=== PATIENT | female | born 1945 | race Caucasian/White ===

== ENCOUNTER → 2022-09-11 14:13 | Outpatient (BNVA) | payer MEDICARE, OTHER, SELFPAY | PROVIDERS: Family Provider Nurse Practitioner; PCP Registered Nurse; Referring Provider Registered Nurse; Visit Provider Internal Medicine | DX: E05.90 Thyrotoxicosis, unspecified without thyrotoxic crisis or storm (principal); R00.2 Palpitations | CPT/HCPCS: 36415; 83516; 84439; 84443; 84480; 99204 ==

== ENCOUNTER → 2022-11-11 15:36 | Outpatient (BNVA) | payer MEDICARE, OTHER, SELFPAY | PROVIDERS: Family Provider Nurse Practitioner; PCP Registered Nurse; Visit Provider Internal Medicine | DX: E05.90 Thyrotoxicosis, unspecified without thyrotoxic crisis or storm (principal) | CPT/HCPCS: 80053; 84439; 84443; 84480; 85025 ==

== ENCOUNTER → 2023-01-13 14:36 | Outpatient (BNVA) | payer MEDICARE, OTHER, SELFPAY | PROVIDERS: Family Provider Nurse Practitioner; PCP Registered Nurse; Visit Provider Internal Medicine | DX: E05.90 Thyrotoxicosis, unspecified without thyrotoxic crisis or storm (principal) | CPT/HCPCS: 84439; 84443; 84480 ==

== ENCOUNTER → 2023-01-15 14:44 | Outpatient (BNVA) | payer MEDICARE, OTHER, SELFPAY | PROVIDERS: Family Provider Nurse Practitioner; PCP Registered Nurse; Visit Provider Internal Medicine | DX: E05.90 Thyrotoxicosis, unspecified without thyrotoxic crisis or storm (principal); R00.2 Palpitations | CPT/HCPCS: 99213; 99214 ==

== ENCOUNTER → 2023-03-26 11:33 | Outpatient (BNVA) | payer MEDICARE, OTHER, SELFPAY | PROVIDERS: Family Provider Nurse Practitioner; PCP Registered Nurse; Visit Provider Internal Medicine | DX: E05.90 Thyrotoxicosis, unspecified without thyrotoxic crisis or storm (principal) | CPT/HCPCS: 84439; 84443; 84480 ==

== ENCOUNTER → 2023-03-27 14:06 | Outpatient (BNVA) | payer MEDICARE, OTHER, SELFPAY | PROVIDERS: Family Provider Nurse Practitioner; PCP Registered Nurse; Visit Provider Internal Medicine | DX: E05.90 Thyrotoxicosis, unspecified without thyrotoxic crisis or storm (principal); R00.2 Palpitations; R61 Generalized hyperhidrosis | CPT/HCPCS: 99214 ==

== ENCOUNTER → 2023-05-29 15:22 | Outpatient (BNVA) | payer MEDICARE, OTHER, SELFPAY | PROVIDERS: Family Provider Nurse Practitioner; PCP Registered Nurse; Visit Provider Internal Medicine | DX: E05.90 Thyrotoxicosis, unspecified without thyrotoxic crisis or storm (principal) | CPT/HCPCS: 84439; 84443; 84480 ==

== ENCOUNTER → 2023-06-03 13:03 | Outpatient (BNVA) | payer MEDICARE, OTHER, SELFPAY | PROVIDERS: Family Provider Nurse Practitioner; PCP Registered Nurse; Visit Provider Internal Medicine | DX: E55.9 Vitamin D deficiency, unspecified (principal); R25.2 Cramp and spasm; R61 Generalized hyperhidrosis; R00.2 Palpitations; E05.10 Thyrotoxicosis with toxic single thyroid nodule without thyrotoxic crisis or storm | CPT/HCPCS: 36415; 80053; 82306; 82310; 83735; 83970; 84100; 99214 ==

== ENCOUNTER 2023-06-30 14:04 | Observation (INO) | payer MEDICARE, OTHER, SELFPAY ==
[2023-06-30] VITALS (31 sets, daily range): BP systolic 117–183; BP diastolic 57–128; PULSE 80–102; RESP 15–38; O2SAT 90–100; BMI 27.8
[2023-06-30 13:19] LABS: Glucose Point of Care 103 mg/dL (70-110)
--- NOTE | 2023-06-30 13:38 | PM.HP ---
Providers/Chief Complaint Admitting Physician: Kishore Alonso MD Primary Care Provider: Akiko Jean Chief Complaint: Hypoglycemia History of Present Illness Cate Tariq is a 78 year old female with past medical history of hypothyroidism, remote history of breast cancer postlumpectomy and radiation therapy presents to the ER from endocrine office for recurrent persistent hypoglycemia at home. As per the patient she has been having symptoms of difficulty in breathing, palpitations, extreme weakness on and off for the last 2 to 3 weeks for which she had received jacque pro monitor on which she was found to have hypoglycemia with blood sugars dropping down to mid 30s. As per patient's symptoms started around 3 weeks ago and are associated with shortness of breath on exertion. Denies any chest pains. Symptoms are associated with palpitations. Also gives history of decreased appetite and loss of around 7 pounds of weight. Denies any nausea, vomiting, dysuria, diarrhea, sick contacts, cough, subjective fever fever. Today patient was seen back in endocrine office and recurrent hypoglycemia was noticed hence hospitalist service was requested for admission for further monitoring and management. Review of Systems General: Reports: 10 or more systems reviewed and unremarkable except in HPI and below Const: Denies: fever(s), chills, body aches, change in appetite, change in weight, malaise, night sweats, diaphoresis, change in sleep pattern, daytime sleepiness or snoring Eyes: Denies: change in vision, blurry vision, photophobia, eye discomfort or eye discharge ENMT: Denies: throat pain, enlarged tonsils, hoarseness, mouth pain, oral sores, dry mouth, tinnitus, nasal congestion or post nasal drip Card: Denies: chest pain, palpitations, irregular heart rhythm, edema, swelling of feet/ankles, lightheadedness, syncope, pre-syncope, dyspnea on exertion, orthopnea, leg pain with exertion or acrocyanosis Resp: Denies: dyspnea, productive cough, non-productive cough, wheezing, stridor, pain on inspiration, change in phlegm color, hemoptysis or chest congestion GI: Denies: abdominal pain, nausea, vomiting, hematemesis, coffee ground emesis, dysphagia, heartburn, diarrhea, constipation, bloating, GI cramping, change in bowel habits, pain on defecation, hematochezia or melena : Denies: flank pain, dysuria, urinary frequency, urinary urgency, urinary hesitancy, nocturia or hematuria Musc: Denies: neck pain, back pain, extremity pain, joint pain, joint swelling, joint redness, joint stiffness or limited range of motion Neuro: Denies: headache(s), numbness in extremities, weakness in extremities, sensory changes, lack of coordination, difficulty walking, frequent falls, dizziness, vertigo, confusion, Slurred speech present, difficulty communicating thoughts or seizure-like activity Psych: Denies: anxiety, depression, mood swings, panic attacks, hopelessness or irritability Endo: Denies: polyuria, polydipsia, tired all the time, cold intolerance, excessive sweating, flushing or heat intolerance Néstor/Lymph: Denies: easy bruising or easy bleeding All/Imm: Denies: tongue swelling, facial swelling or acute wheezing Medications/Allergies Home Medications Medication Instructions Recorded Confirmed Last Taken Type acetaminophen 500 mg tablet 500 mg PO Q6H PRN Pain 09/11/22 06/30/23 Unknown History (Tylenol Extra Strength) cetirizine 10 mg tablet (Zyrtec) 10 mg PO DAILY PRN Allergy Symptoms 09/11/22 06/30/23 06/29/23 History fluticasone propionate 50 2 spray intranasal DAILY 09/11/22 06/30/23 06/29/23 History mcg/actuation nasal spray,suspension (Flonase Allergy Relief) methimazole 5 mg tablet 7.5 mg PO DAILY 60 days #90 tabs 03/27/23 06/30/23 06/29/23 Rx ibuprofen 200 mg capsule 200 mg PO Q6H PRN Pain 06/30/23 06/30/23 Unknown History xgrzhdpn-aln-vrtim ac 400 1 tab PO DAILY 06/30/23 06/30/23 06/29/23 History mcg-calcium carb 500 mg-vit K1 20 mcg tablet (Women's 50 Plus Multivitamin) Allergies Allergy/AdvReac Type Severity Reaction Status Date / Time propanolol AdvReac Intermediate nose scabs Uncoded 06/30/23 10:57 PFSH Acute PFSH: Medical History (Updated 06/30/23 @ 14:15 by Kishore Alonso MD) Breast cancer Colitis GERD (gastroesophageal reflux disease) Hiatal hernia Hyperthyroidism Inflammatory arthritis Loose left total knee arthroplasty Surgical History (Updated 06/30/23 @ 13:39 by Kishore Alonso MD) History of knee replacement S/P breast lumpectomy Family History (Updated 06/30/23 @ 13:39 by Kishore Alonso MD) Other Arrhythmia CAD (coronary artery disease) Cancer Social History (Updated 06/30/23 @ 13:41 by Kishore Alonso MD) Smoking and tobacco/nicotine status: never used tobacco/nicotine Alcohol intake: never Caregiver/support person: Yes Lives independently: Yes Household members: spouse Housing: House Vitals/I&O/Wt Last Vital Signs O2 Del Method Room Air 06/30/23 12:56 Weight last 48 hrs Weight 76 kg Physical Exam Narrative: General: No acute distress, AO x3 HEENT: PERRLA, pupils bilaterally equal and reactive Chest: Normal vesicular breath sounds, no added sounds, equal good air entry bilaterally CVS: S1-S2 regular, no murmurs, no tachycardia, no gallops, no rubs Abdomen: Soft, nontender, no organomegaly, bowel sounds present Neuro: No focal deficits, no facial deformity, AO x3, power 5/5 in all limbs A&P Assessment and plan (1) Pre-syncope: (2) Palpitation: (3) Weight loss, non-intentional: (4) Hyperthyroidism: Plan 78-year-old female with past medical history of hypothyroidism on methimazole admitted for recurrent episode of palpitations, presyncope and difficulty in breathing on exertion for last 3 weeks for which she was found to have recurrent episodes of hypoglycemia on home monitoring with blood sugars dropping down to mid 30s. Check CBC, appreciate CMP, check proBNP, free T4, TSH, vitamin B12 folate and TIBC. Presyncope/palpitations: Could be in setting of hypoglycemia. Cannot rule out arrhythmia given history of hypothyroidism. Telemetry monitoring. Check TSH, free T4 given history of hypothyroidism. Check echocardiogram. It seems patient was recently on propranolol which was stopped in December for possible bradycardia. Hypoglycemia: Unknown cause. Reconciliation of medications done. Check free cortisol level in AM. Check CT abdomen pelvis with contrast to rule out pancreatic mass. Appreciate endocrine input. Regular diet. Hypoglycemia protocol. If has persistent hypoglycemia will start on D5W. Patient would possibly need a 72-hour fasting monitoring. Unfortunately the test cannot be done at [facility] for 72-hour monitoring. Explained the same to patient. Also explained that if in case that is needed she will need to be transferred most likely to [place] at [facility] as those tests are also not done in [place]. Weight loss: Anorexia: CT abdomen pelvis, TSH work-up as above. Check chest x-ray. Hypothyroidism: Follows up with endocrine as an outpatient. For now continue with home dose of methimazole. High blood pressure: No history of hypertension: Goal blood pressure less than 140/90 mmHg. We will continue to monitor and add antihypertensive as needed. CODE STATUS: Discussed in detail. Full code. will be the DPOA. Patient would like to think further regarding further goals of care. Informed patient that she can let us know about the decision later for now will continue with full code. Patient is agreeable. Regular diet. Famotidine for PUD prophylaxis Lovenox 30 mg subcu daily for DVT prophylaxis. Attestations Medical Necessity Statement*: Admitted to observation for less than 2 midnights for management of recurrent symptomatic severe hypoglycemia. Diagnoses Pre-syncope R55 Palpitation R00.2 Weight loss, non-intentional R63.4 Hyperthyroidism E05.90
--- NOTE | 2023-06-30 14:10 | XRR_ITS ---
PROCEDURE INFORMATION: Exam: XR Chest Exam date and time: 06/30/2023 2:29 PM Age: 78 years old Clinical indication: Shortness of breath TECHNIQUE: Imaging protocol: Radiologic exam of the chest. Views: 1 view. COMPARISON: No relevant prior studies available. FINDINGS: Lungs: Mild biapical pleuroparenchymal thickening. No consolidation. Pleural spaces: Indistinct left costophrenic sulcus may represent small pleural effusion, atelectasis or scarring. No large pleural effusion or pneumothorax. Heart/Mediastinum: No cardiomegaly. Calcified mediastinal lymph nodes in keeping with sequela of old granulomatous disease. Vasculature: Aortic arch atherosclerotic calcification. Bones/joints: Mild biphasic spinal curvature. Mild left shoulder degenerative changes. Soft tissues: Dystrophic left breast calcification and surgical clips. XR/XR chest 1V portable [id number] IMPRESSION: Left costophrenic sulcus blunting may represent small pleural effusion, atelectasis or scarring.
--- NOTE | 2023-06-30 14:10 | USCV_ITS ---
Cate Tariq Age: 78 Gender: F : 1945 Exam Date: 06/30/2023 16:02 Ordering Phys: Kishore Alonso MD Technologist: Francisco J Alatorre [place] [facility]ication: palpitations, SOB on exertion BP: 140 / 82 HR: 87 Rhythm: Sinus Technical Quality: Adequate MEASUREMENTS (Male / Female) Normal Values 2D ECHO LV Diastolic Diameter PLAX 4.0 cm 4.2 - 5.9 / 3.9 - 5.3 cm LV Systolic Diameter PLAX 2.3 cm IVS Diastolic Thickness 0.9 cm 0.6 - 1.0 / 0.6 - 0.9 cm IVS Systolic Thickness 1.1 cm LVPW Diastolic Thickness 0.7 cm 0.6 - 1.0 / 0.6 - 0.9 cm LVPW Systolic Thickness 1.2 cm LVOT Diameter 1.8 cm LV Ejection Fraction 2D Teich 74.4 % LV Ejection Fraction MOD 2C 77.2 % LV Ejection Fraction 2C AL 80.1 % LA Diameter 3.8 cm LA Width 4.5 cm M-MODE Aortic Annulus Diameter 3.2 cm LA Ao Ratio MM 1.1 MV E Point Septal Separation 1.3 cm DOPPLER AV Peak Velocity 108.0 cm/s LVOT Peak Velocity 92.0 cm/s AV Area Cont Eq vti 2.5 cm squared AV Area Cont Eq pk 2.2 cm squared MV Area PHT 6.3 cm squared Mitral E to A Ratio 0.7 MV E' Velocity 40.5 cm/s Mitral E to MV E' Ratio 11.7 Mitral E to LV E' Lateral Ratio 12.3 Mitral E to LV E' Septal Ratio 11.4 TR Peak Velocity 133.0 cm/s TR Peak Gradient 7.1 mmHg TV Peak E Velocity 54.0 cm/s Right Atrial Pressure 3.0 mmHg Pulmonary Artery Systolic Pressu 10.1 mmHg FINDINGS Left Ventricle Technically limited quality echocardiogram because of poor ultrasonic windows. Left ventricle is normal in size. LV systolic function is normal with EF of 50-55%. No regional wall motion abnormalities are seen. Grade 1 diastolic dysfunction Right Ventricle Normal in size and function Right Atrium Normal in size Left Atrium Normal in size Mitral Valve Structurally normal mitral valve. Trace mitral regurgitation Aortic Valve Structurally normal aortic valve. No significant stenosis or regurgitation. Tricuspid Valve Mild tricuspid regurgitation. Pulmonary artery systolic pressure is normal. Pulmonic Valve Not well visualized Pericardium Normal Aorta Normal in size IVC Appears to be normal CONCLUSIONS Technically limited quality echocardiogram because of poor ultrasonic windows. LV systolic function is normal with EF of 50 to 55%. Grade 1 diastolic dysfunction. Trace mitral regurgitation Mild tricuspid regurgitation No comparison studies are available. Leobardo Saldivar MD (Electronically Signed) Final Date: 01 July 2023 09:02 S
[2023-06-30 15:01] LABS: Basophils # 0.1 10^3/uL (0.0-0.1); Basophils % 0.5 %; Eosinophils % 0.4 %; Lymphocytes % 21.3 %; Mean Corpuscular HGB Conc 33.6 g/dL (30-55); Mean Corpuscular Hemoglobin 31.5 pg (27-33); Mean Corpuscular Volume 93.8 fl (85-98); Mean Platelet Volume 8.2 fL (7.4-10.4); Monocytes # 0.5 10^3/uL (0.2-0.9); Monocytes % 5.8 %; Neutrophils # 6.64 10^3/uL (1.8-7.7); Neutrophils % 71.7 %; Nucleated Red Blood Cells % 0 %; Platelet Count 402 10^3/cmm (157-399); Red Blood Count 3.84 10^6/uL (3.85-5.65); Red Cell Distribution Width 11.9 % (12.1-15.1); White Blood Count 9.28 10^3/uL (3.29-11.43)
[2023-06-30 15:16] LABS: D Dimer 0.96 ug/mLFEU (0-0.59); Estmated Average Glucose 105; Hemoglobin A1C 5.3 % (4.0-6.0)
[2023-06-30] MEDS: amlodipine 10 mg Tablet PO (15:31)
[2023-06-30 15:32] LABS: Free T4 Free Thyroxine 1.63 ng/dL (0.82-1.77); NT Pro B Type Natriuretic Pept 320 pg/mL (0-450); Procalcitonin 0.03 ng/mL (0-0.5)
[2023-06-30 15:35] LABS: Thyroid Stimulating Hormone 0.16 uIU/mL (0.27-4.20)
[2023-06-30] MEDS: enoxaparin 30 mg/0.3 mL Syringe SUBCUT (15:35)
[2023-06-30 16:40] LABS: Glucose Point of Care 111 mg/dL (70-110)
[2023-06-30 16:48] LABS: Adenovirus Not Detected (NOT DETECT); Chlamydia Pneumoniae Not Detected (NOT DETECT); Coronavirus 229E,HKU1,NL63,OC4 Not Detected (NOT DETECT); Human Metapneumovirus Not Detected (NOT DETECT); Human Rhinovirus/Enterovirus Not Detected (NOT DETECT); Influenza A Not Detected (NOT DETECT); Influenza A H1 Not Detected (NOT DETECT); Influenza A H1-2009 Not Detected (NOT DETECT); Influenza A H3 Not Detected (NOT DETECT); Influenza B Not Detected (NOT DETECT); Mycoplasma Pneumoniae Not Detected (NOT DETECT); Parainfluenza Virus Type 1 Not Detected (NOT DETECT); Parainfluenza Virus Type 2 Not Detected (NOT DETECT); Parainfluenza Virus Type 3 Not Detected (NOT DETECT); Parainfluenza Virus Type 4 Not Detected (NOT DETECT); Respiratory Syncytial Virus A Not Detected (NOT DETECT); Respiratory Syncytial Virus B Not Detected (NOT DETECT); SARS-COV-2 Not Detected (NOT DETECT)
--- NOTE | 2023-06-30 17:04 | CTR_ITS ---
PROCEDURE INFORMATION: Exam: CTA Chest With Contrast Exam date and time: 06/30/2023 6:25 PM Age: 78 years old Clinical indication: Other: + d dimer pancreatic mass; Additional info: High dimmer, possible pancreatic mass TECHNIQUE: Imaging protocol: Computed tomographic angiography of the chest with contrast. Exam focused on the arteries. 3D rendering (Not supervised by radiologist): MIP and/or 3D reconstructed images were created by the technologist. Radiation optimization: All CT scans at this facility use at least one of these dose optimization techniques: automated exposure control; mA and/or kV adjustment per patient size (includes targeted exams where dose is matched to clinical indication); or iterative reconstruction. Contrast material: OMNI 350; Contrast volume: 100 ml; Contrast route: INTRAVENOUS (IV); REPORTING DATA: Count of CT and Cardiac NM exams in prior 12 months: This patient has received 0 known CTs and 0 known cardiac nuclear medicine studies in the 12 months prior to the current study. COMPARISON: CR (CHEST, ) 06/30/2023 2:29 PM RADIATION DOSE METRICS: Total DLP (mGy-cm): 1111 FINDINGS: Pulmonary arteries: Pulmonary vasculature is adequately opacified without filling defects or other evidence of acute pulmonary embolism. Aorta: Scattered atherosclerotic changes of the thoracic aorta. No evidence of aortic aneurysm. Lungs: Chronic granulomatous calcifications within the mediastinum and at the lung bases. Pleural spaces: Unremarkable. No pneumothorax. No pleural effusion. Heart: Heart is borderline enlarged. Mild calcification of coronary arteries. No significant pericardial effusion. Lymph nodes: Unremarkable. No enlarged lymph nodes. Bones/joints: Advanced degenerative disc/endplate changes T11-T12. No acute bony abnormalities. Soft tissues: Large nodular calcifications present deep left breast presumed postsurgical in nature. PROCEDURE INFORMATION: Exam: CT Abdomen And Pelvis With Contrast Exam date and time: 06/30/2023 6:25 PM Age: 78 years old Clinical indication: Other: + d dimer pancreatic mass; Additional info: High dimmer, possible pancreatic mass TECHNIQUE: Imaging protocol: Computed tomography of the abdomen and pelvis with contrast. Radiation optimization: All CT scans at this facility use at least one of these dose optimization techniques: automated exposure control; mA and/or kV adjustment per patient size (includes targeted exams where dose is matched to clinical indication); or iterative reconstruction. Contrast material: OMNI 350; Contrast volume: 100 ml; Contrast route: INTRAVENOUS (IV); REPORTING DATA: Count of CT and Cardiac NM exams in prior 12 months: This patient has received 0 known CTs and 0 known cardiac nuclear medicine studies in the 12 months prior to the current study. COMPARISON: CR (CHEST, ) 06/30/2023 2:29 PM RADIATION DOSE METRICS: Total DLP (mGy-cm): 1111 FINDINGS: Lungs: Lung bases are clear. Liver: Few granulomatous calcifications within the liver which is otherwise unremarkable. Gallbladder and bile ducts: Multiple large gallstones within the gallbladder. Bile ducts are not dilated. Pancreas: Pancreas is unremarkable. No pancreatic mass detected. Main pancreatic duct is not dilated. Spleen: Chronic granulomatous calcifications throughout the spleen and which is not enlarged. Adrenal glands: Normal. No mass. Kidneys and ureters: Normal. No hydronephrosis. Stomach and bowel: Multiple diverticula sigmoid colon without evidence of acute diverticulitis. Appendix: No evidence of appendicitis. Intraperitoneal space: Unremarkable. No free air. No significant fluid collection. Vasculature: Abdominal aorta and iliac vessels are diffusely calcified. There is no aortic aneurysm. Lymph nodes: Unremarkable. No enlarged lymph nodes. Urinary bladder: Unremarkable as visualized. Reproductive: There is significant a expansion and heterogeneity within the endometrial cavity concerning for endometrial pathology that needs further evaluation. Bones/joints: Moderate degenerative changes lumbar spine. No acute bony abnormalities. Soft tissues: Unremarkable. CT/CT angio chest w abd pel w con IMPRESSION: 1. Negative CT angiogram of the chest. No evidence of acute pulmonary embolism. 2. Chronic granulomatous changes. No acute abnormalities. 3. Postsurgical changes left breast. IMPRESSION: 1. Unremarkable CT examination of the pancreas. 2. Abnormality involving the endometrial cavity concerning for endometrial pathology for which follow-up nonemergent pelvic ultrasound recommended for further assessment. 3. Cholelithiasis without evidence of acute cholecystitis. 4. Sigmoid diverticulosis without evidence of acute diverticulitis. 5. Additional chronic findings as above.
[2023-06-30] MEDS: famotidine 20 mg Tablet PO (17:15)
[2023-06-30] MEDS: carvedilol 3.125 mg Tablet PO (17:15)
[2023-06-30 17:59] LABS: Add Urine Microscopic? NO; Charge for UA Resulting for Rev
[2023-06-30 18:26] LABS: Bilirubin Urine Neg (Negative); Blood Urine Neg (Negative); Glucose Urine UA Norm (Normal); Ketones Urine Negative (Negative); Leukocyte Esterase Urine Negative (Negative); Nitrate Urine Negative (Negative); Protein Urine Neg (Negative); Specific Gravity, Urine 1.005 (1.005-1.030); Urine Appearance Clear (CLEAR); Urine Color Straw (Yellow); Urobilinogen Urine Norm (Negative); pH Urine 7 (5-7)
[2023-06-30] MEDS: iohexol 350 mg/mL 500 mL Btl (per mL) IV (18:44)
[2023-06-30 19:56] LABS: Glucose Point of Care 117 mg/dL (70-110)
[2023-07-01] VITALS (10 sets, daily range): BP systolic 96–157; BP diastolic 46–78; PULSE 75–90; RESP 13–23; TEMP 36.6–37.1; O2SAT 93–98
[2023-07-01 01:27] LABS: Glucose Point of Care 97 mg/dL (70-110)
[2023-07-01 05:13] LABS: Glucose Point of Care 96 mg/dL (70-110)
[2023-07-01 05:32] LABS: Basophils # 0.1 10^3/uL (0.0-0.1); Basophils % 0.8 %; Eosinophils # 0.1 10^3/uL (0.0-0.8); Eosinophils % 1.1 %; Hematocrit 34.9 % (36-47); Lymphocytes # 2.3 10^3/uL (0.8-4.8); Lymphocytes % 29.2 %; Mean Corpuscular HGB Conc 33.2 g/dL (30-55); Mean Corpuscular Hemoglobin 31.4 pg (27-33); Mean Corpuscular Volume 94.3 fl (85-98); Mean Platelet Volume 8.4 fL (7.4-10.4); Monocytes # 0.6 10^3/uL (0.2-0.9); Monocytes % 7.9 %; Neutrophils # 4.82 10^3/uL (1.8-7.7); Neutrophils % 60.7 %; Nucleated Red Blood Cells % 0 %; Platelet Count 363 10^3/cmm (157-399); Red Cell Distribution Width 11.9 % (12.1-15.1); White Blood Count 7.94 10^3/uL (3.29-11.43)
[2023-07-01 05:54] LABS: Chol HDL Ratio 3.54 mg/dL (0.0-4.40); Cholesterol 163 mg/dL (0-200); HDL Cholesterol 46 mg/dL (60-100); LDL Cholesterol Calculated 103 mg/dL (50-129); LDL HDL Ratio 2.24 RATIO (0.00-3.22); Triglycerides 68 mg/dL (0-150)
[2023-07-01 05:58] LABS: Alanine Aminotransferase 10 U/L (0-33); Albumin Level 3.7 g/dL (3.5-5.2); Alkaline Phosphatase 66 U/L (35-105); Anion Gap 11.8 (5-19); Aspartate Amino Transferase 14 U/L (0-32); Blood Urea Nitrogen 12 mg/dL (8-23); Calcium 9.2 mg/dL (8.5-10.5); Carbon Dioxide 27 mmol/L (22-29); Chloride 103 mmol/L (98-107); Globulin 2.9 g/dL (1.3-4.6); Glucose 108 mg/dL (65-115); Magnesium 2.4 mg/dL (1.7-2.3); Osmolality Calculated 284 mOsm/kg (285-295); Phosphorus 3.4 mg/dL (2.5-4.5); Potassium 4.8 mmol/L (3.5-5.1); Sodium 137 mmol/L (136-145); Total Bilirubin 0.3 mg/dL (0.15-1.2); Total Protein 6.6 g/dL (6.6-8.7)
[2023-07-01 07:51] LABS: Glucose Point of Care 108 mg/dL (70-110)
[2023-07-01] MEDS: methIMAzole 5 MG Tablet 7.5 MG PO (08:14)
[2023-07-01] MEDS: famotidine 20 mg Tablet PO (08:14)
[2023-07-01] MEDS: carvedilol 3.125 mg Tablet PO (08:14)
[2023-07-01] MEDS: fluticasone nasal spray 16gm Btl 2 SPRAY INTRANASAL (08:14)
[2023-07-01] MEDS: amlodipine 10 mg Tablet PO (08:14)
--- NOTE | 2023-07-01 09:33 | PC.NURSE ---
Patient ambulated unit with use of walker. Patient states she did not experience shortness of breath. HR 110, O2 on RA 97-99%, BP sitting at side of bed 116/51.
--- NOTE | 2023-07-01 10:47 | PM.DCS ---
Discharge Providers Date of Admission: 06/30/23 14:04 Date of Discharge: July 01, 2023 Attending Provider at Admission: Kishore Alonso MD Attending Provider at Discharge: Kishore Alonso MD Primary Care Provider: Akiko Jean Diagnoses at Discharge Discharge Diagnosis (1) Pre-syncope: Status: Acute (2) Palpitation: Status: Acute (3) Weight loss, non-intentional: Status: Acute (4) Hyperthyroidism: Status: Acute Reason for Visit Reason for Visit: Hypoglycemia Hospital Course Hospital Course Cate Tariq is a 78 year old female with past medical history of hypothyroidism, remote history of breast cancer postlumpectomy and radiation therapy presents to the ER from endocrine office for recurrent persistent hypoglycemia at home. As per the patient she has been having symptoms of difficulty in breathing, palpitations, extreme weakness on and off for the last 2 to 3 weeks for which she had received jacque pro monitor on which she was found to have hypoglycemia with blood sugars dropping down to mid 30s.? As per patient's symptoms started around 3 weeks ago and are associated with shortness of breath on exertion.? Denies any chest pains.? Symptoms are associated with palpitations.? Also gives history of decreased appetite and loss of around 7 pounds of weight.? Denies any nausea, vomiting, dysuria, diarrhea, sick contacts, cough, subjective fever fever. Today patient was seen back in endocrine office and recurrent hypoglycemia was noticed hence hospitalist service was requested for admission for further monitoring and management. Patient was admitted to the hospital further evaluation and management of possible hypoglycemia symptoms, palpitations and shortness of breath. She was started on regular diet while being monitored in the ICU. During hospitalization patient did not have any further episodes of hypoglycemia and did not require any medication as per hypoglycemia protocol. Cortisol levels were checked and were found to be normal. She underwent CT chest abdomen pelvis which were negative for acute pathology. Patient was found to have elevated blood pressures for which antihypertensives were started. She was also found to have frequent couplets for which she was started on a beta-rashad. Thyroid panel was checked and she was found to be slightly hyperthyroid for which her dose of methimazole was adjusted to 10 mg daily. It is possible patient's symptoms of palpitations, weight loss, dizziness and shortness of breath could be in setting of recurrent couplets from hyperthyroidism. She has been discharged hemodynamically stable condition on oral amlodipine and 50 mg of metoprolol twice daily. She is to have event monitor placed. She will follow-up with endocrine office within next 1 month and with her primary care provider within next 10 days. She is to check her blood pressure daily and maintain a blood pressure diary for further adjustment of medications. Physical Exam Narrative: General: No acute distress, AO x3 HEENT: PERRLA, pupils bilaterally equal and reactive Chest: Normal vesicular breath sounds, no added sounds, equal good air entry bilaterally CVS: S1-S2 regular, no murmurs, no tachycardia, no gallops, no rubs Abdomen: Soft, nontender, no organomegaly, bowel sounds present Neuro: No focal deficits, no facial deformity, AO x3, power 5/5 in all limbs Discharge Data Studies Completed and Pending Completed Studies During Hospitalization Category Date Time Status CT angio chest w abd pel w con Routine Cat Scan 06/30/23 17:04 Completed XR chest 1V portable [id number] Routine Exams 06/30/23 14:10 Completed CV. echo complete* [id number] Routine Ultrasound 06/30/23 14:10 Completed Radiology Impressions Chest X-Ray 06/30/23 14:10 IMPRESSION: Left costophrenic sulcus blunting may represent small pleural effusion, atelectasis or scarring. Chest/Abdomen/Pelvis CT 06/30/23 17:04 IMPRESSION: 1. Negative CT angiogram of the chest. No evidence of acute pulmonary embolism. 2. Chronic granulomatous changes. No acute abnormalities. 3. Postsurgical changes left breast. IMPRESSION: 1. Unremarkable CT examination of the pancreas. 2. Abnormality involving the endometrial cavity concerning for endometrial pathology for which follow-up nonemergent pelvic ultrasound recommended for further assessment. 3. Cholelithiasis without evidence of acute cholecystitis. 4. Sigmoid diverticulosis without evidence of acute diverticulitis. 5. Additional chronic findings as above. Echocardiogram: CONCLUSIONS ?Technically limited quality echocardiogram because of poor ?ultrasonic windows. ?LV systolic function is normal with EF of 50 to 55%. ?Grade 1 diastolic dysfunction. ?Trace mitral regurgitation ?Mild tricuspid regurgitation ?No comparison studies are available. ?Leobardo Saldivar MD ?(Electronically Signed) ?Final Date:? ? ? 01 July 2023 Laboratory Results WBC 7.94 10^3/uL (3.29-11.43) 07/01/23 05:10 RBC 3.70 10^6/uL (3.85-5.65) L 07/01/23 05:10 Hgb 11.60 g/dL (11.27-16.99) 07/01/23 05:10 Hct 34.9 % (36-47) L 07/01/23 05:10 MCV 94.3 fl (85-98) 07/01/23 05:10 MCH 31.4 pg (27-33) 07/01/23 05:10 MCHC 33.2 g/dL (30-55) 07/01/23 05:10 RDW 11.9 % (12.1-15.1) L 07/01/23 05:10 Plt Count 363 10^3/cmm (157-399) 07/01/23 05:10 MPV 8.4 fL (7.4-10.4) 07/01/23 05:10 Neut % (Auto) 60.7 % 07/01/23 05:10 Lymph % (Auto) 29.2 % 07/01/23 05:10 [place] % (Auto) 7.9 % 07/01/23 05:10 Eos % (Auto) 1.1 % 07/01/23 05:10 Baso % (Auto) 0.8 % 07/01/23 05:10 Neut # (Auto) 4.82 10^3/uL (1.8-7.7) 07/01/23 05:10 Lymph # (Auto) 2.3 10^3/uL (0.8-4.8) 07/01/23 05:10 [place] # (Auto) 0.6 10^3/uL (0.2-0.9) 07/01/23 05:10 Eos # (Auto) 0.1 10^3/uL (0.0-0.8) 07/01/23 05:10 Baso # (Auto) 0.1 10^3/uL (0.0-0.1) 07/01/23 05:10 Nucleated RBC % (auto) 0 % 07/01/23 05:10 Nucleated RBCs # 0.0 /100WBC 07/01/23 05:10 D-Dimer 0.96 ug/mLFEU (0-0.59) H 06/30/23 14:38 Sodium 137 mmol/L (136-145) 07/01/23 05:10 Potassium 4.8 mmol/L (3.5-5.1) 07/01/23 05:10 Chloride 103 mmol/L (98-107) 07/01/23 05:10 Carbon Dioxide 27 mmol/L (22-29) 07/01/23 05:10 Anion Gap 11.8 (5-19) 07/01/23 05:10 BUN 12 mg/dL (8-23) 07/01/23 05:10 Creatinine 0.5 mg/dL (0.5-0.9) 07/01/23 05:10 GFR Calculation Not Reportable 07/01/23 05:10 Glucose 108 mg/dL (65-115) 07/01/23 05:10 POC Glucose 108 mg/dL (70-110) 07/01/23 07:40 Estimat Average Glucose 105 06/30/23 14:38 Hemoglobin A1c 5.3 % (4.0-6.0) 06/30/23 14:38 Calculated Osmolality 284 mOsm/kg (285-295) L 07/01/23 05:10 Calcium 9.2 mg/dL (8.5-10.5) 07/01/23 05:10 Phosphorus 3.4 mg/dL (2.5-4.5) 07/01/23 05:10 Magnesium 2.4 mg/dL (1.7-2.3) H 07/01/23 05:10 Total Bilirubin 0.3 mg/dL (0.15-1.2) 07/01/23 05:10 AST 14 U/L (0-32) 07/01/23 05:10 ALT 10 U/L (0-33) 07/01/23 05:10 Alkaline Phosphatase 66 U/L (35-105) 07/01/23 05:10 NT-Pro-B Natriuret Pep 320 pg/mL (0-450) 06/30/23 14:38 Total Protein 6.6 g/dL (6.6-8.7) 07/01/23 05:10 Albumin 3.7 g/dL (3.5-5.2) 07/01/23 05:10 Globulin 2.9 g/dL (1.3-4.6) 07/01/23 05:10 Triglycerides 68 mg/dL (0-150) 07/01/23 05:10 Cholesterol 163 mg/dL (0-200) 07/01/23 05:10 LDL Cholesterol, Calc 103 mg/dL (50-129) 07/01/23 05:10 HDL Cholesterol 46 mg/dL (60-100) L 07/01/23 05:10 LDL/HDL Ratio 2.24 RATIO (0.00-3.22) 07/01/23 05:10 Cholesterol/HDL Ratio 3.54 mg/dL (0.0-4.40) 07/01/23 05:10 Procalcitonin 0.03 ng/mL (0-0.5) 06/30/23 14:38 TSH 0.16 uIU/mL (0.27-4.20) L 06/30/23 14:38 Free T4 1.63 ng/dL (0.82-1.77) 06/30/23 14:38 Random Cortisol 19.40 ug/dL (2.47-19.5) 07/01/23 05:10 Urine Color Straw (Yellow) 06/30/23 17:45 Urine Appearance Clear (CLEAR) 06/30/23 17:45 Urine pH 7 (5-7) 06/30/23 17:45 Ur Specific [place] 1.005 (1.005-1.030) 06/30/23 17:45 Urine Protein Neg (Negative) 06/30/23 17:45 Urine Glucose (UA) Norm (Normal) 06/30/23 17:45 Urine Ketones Negative (Negative) 06/30/23 17:45 Urine Blood Neg (Negative) 06/30/23 17:45 Urine Nitrate Negative (Negative) 06/30/23 17:45 Urine Bilirubin Neg (Negative) 06/30/23 17:45 Urine Urobilinogen Norm mg/dL (Negative) 06/30/23 17:45 Ur Leukocyte Esterase Negative (Negative) 06/30/23 17:45 Nasal Influ A H1 2008 PCR Not detected (NOT DETECT) 06/30/23 14:52 Adenovirus (PCR) Not detected (NOT DETECT) 06/30/23 14:52 C. pneumoniae DNA (PCR) Not detected (NOT DETECT) 06/30/23 14:52 Coronavirus 229E (PCR) Not detected (NOT DETECT) 06/30/23 14:52 Human Metapneumovir PCR Not detected (NOT DETECT) 06/30/23 14:52 Influenza A (H1) PCR Not detected (NOT DETECT) 06/30/23 14:52 Influenza A (H3) PCR Not detected (NOT DETECT) 06/30/23 14:52 Influenza Type A (PCR) Not detected (NOT DETECT) 06/30/23 14:52 Influenza Type B (PCR) Not detected (NOT DETECT) 06/30/23 14:52 M. pneumoniae (PCR) Not detected (NOT DETECT) 06/30/23 14:52 Parainfluenza 1 (PCR) Not detected (NOT DETECT) 06/30/23 14:52 Parainfluenza 2 (PCR) Not detected (NOT DETECT) 06/30/23 14:52 Parainfluenza 3 (PCR) Not detected (NOT DETECT) 06/30/23 14:52 Parainfluenza 4 (PCR) Not detected (NOT DETECT) 06/30/23 14:52 RSV Type A (PCR) Not detected (NOT DETECT) 06/30/23 14:52 RSV Type B (PCR) Not detected (NOT DETECT) 06/30/23 14:52 Entero/Rhino (PCR) Not detected (NOT DETECT) 06/30/23 14:52 SARS-CoV-2 (PCR) Not detected (NOT DETECT) 06/30/23 14:52 SARS-CoV-2 Ag (Rapid) Cancelled 06/30/23 14:52 Vitals Last Vital Signs Temp 98.7 F 07/01/23 09:46 Pulse 82 07/01/23 09:46 Resp 17 07/01/23 08:00 BP 157/78 07/01/23 08:00 Pulse Ox 98 07/01/23 08:00 O2 Del Method Room Air 07/01/23 08:00 Discharge Plan Discharge Patient Disposition: Home Condition: Stable Prescriptions: New famotidine 20 mg Tablet 20 mg PO BID 30 Days Qty: 60 0RF amlodipine 10 mg Tablet 10 mg PO DAILY 30 Days Qty: 30 0RF metoprolol tartrate 50 mg tablet 50 mg PO BID Qty: 60 0RF Continued fluticasone propionate [Flonase Allergy Relief] 50 mcg/actuation spray,suspension 2 spray intranasal DAILY Rx Instructions: administer into each nostril cetirizine [Zyrtec] 10 mg tablet 10 mg PO DAILY PRN (Reason: Allergy Symptoms) acetaminophen [Tylenol Extra Strength] 500 mg tablet 500 mg PO Q6H PRN (Reason: Pain) ibuprofen 200 mg Capsule 200 mg PO Q6H PRN (Reason: Pain) Women's 50 Plus Multivitamin 400 mcg-500 mg calcium-20 mcg Tablet 1 tab PO DAILY Changed methimazole 5 mg tablet 10 mg PO DAILY 60 Days Qty: 90 0RF Discharge Orders: Discharge Order (Routine); Ordered 07/01/23 Ordered By: Kishore Alonso Other Ambulatory Orders: MCT/Event Monitor 21 Days (Routine) Timeframe: 1 Week Facility: [facility] - Location: Radiology Ordered By: Kishore Alonso Referrals: Akiko Jean [Primary Care Provider] - 07/03/23 10:00 am ([facility]) Cayetano Juarez MD [Physician] - 1 month (We have notified your physician's clinic of the need for a follow-up appointment to be scheduled. If you have not heard from them within the next 2 business days, please call them directly. You may also reach out to our parts and service manager at [phone] and she can assist you.) Discharge Diet: Cardiac Discharge Activity: Resume usual activity and Increase activity as tolerated Patient Instructions: Hyperthyroidism (DC), Low-Sodium Diet (DC), Opioid Safety Activity Restrictions/Additional Instructions: Dose of methimazole has been increased to 10 mg daily. Amlodipine 10 mg daily and metoprolol 50 mg twice daily at the antihypertensives. Please check your blood pressure daily at home and maintain a blood pressure diary and follow-up with a primary care provider onsite appointment for further adjustment of medications. Please follow-up with endocrine office in 1 month. Discharge Attestations Time Spent in Discharge Care*: greater than 30 min Specific Discharge Activities: educating patient, educating and/or supporting family/caregiver, discussing with pcp/other providers, discussing with manager of case/social workers/dc planners, documenting/other paperwork and evaluating patient/reviewing data Status at Discharge: Cognitive status at discharge: cognitively intact, Behavioral status at discharge: cooperative, Functional status at discharge: independent ambulation, Overall status at discharge: patient is back to baseline Quality Metrics Clinical Quality Measures [ No reported AMI, CVA or VTE this stay] Coding Level of Care Code 71596 Total time (in minutes) for Discharge: 50 Diagnoses Pre-syncope R55 Palpitation R00.2 Weight loss, non-intentional R63.4 Hyperthyroidism E05.90
[2023-07-01 11:48] LABS: Glucose Point of Care 111 mg/dL (70-110)
--- NOTE | 2023-07-01 13:13 | PC.NURSE ---
Patient provided with written education and verbally educated with at bedside on follow up appointments, mediation changes, new medication, and current condition. Patient and had no questions. IV removed intact, tolerated well. All belongings with patient. Patient brought to personal vehicle with as primary high lift driver.
== END 2023-07-01 13:32 | disposition home or self-care (01) ==
PROVIDERS: Admitting Provider Student in an Organized Health Care Education/Training Program; PCP Registered Nurse; Visit Provider Student in an Organized Health Care Education/Training Program
DX: E16.2 Hypoglycemia, unspecified (principal); R61 Generalized hyperhidrosis; R25.2 Cramp and spasm; E05.90 Thyrotoxicosis, unspecified without thyrotoxic crisis or storm; R00.2 Palpitations; R55 Syncope and collapse; E03.9 Hypothyroidism, unspecified; Z85.3 Personal history of malignant neoplasm of breast; Z92.3 Personal history of irradiation; K80.20 Calculus of gallbladder without cholecystitis without obstruction; K57.30 Diverticulosis of large intestine without perforation or abscess without bleeding; I07.1 Rheumatic tricuspid insufficiency; K21.9 Gastro-esophageal reflux disease without esophagitis; R63.0 Anorexia; I10 Essential (primary) hypertension
CPT/HCPCS: 36415; 36416; 71045; 71275; 74177; 80053; 80061; 81003; 82533; 82962; 83036; 83735; 83880; 84100; 84145; 84439; 84443; 85025; 85378; 87486; 87581; 87633; 93306; 94664; 96372; 99215; G0378; G0379; J1650; Q9967

== ENCOUNTER → 2023-07-08 14:06 | Outpatient (BNVA) | payer MEDICARE, OTHER, SELFPAY | PROVIDERS: PCP Registered Nurse; Visit Provider Internal Medicine Cardiovascular Disease | DX: I49.8 Other specified cardiac arrhythmias (principal); E05.90 Thyrotoxicosis, unspecified without thyrotoxic crisis or storm; I10 Essential (primary) hypertension | CPT/HCPCS: 99204 ==

== ENCOUNTER 2023-07-15 09:46 | Outpatient (CLI) | payer MEDICARE, OTHER, SELFPAY ==
[2023-07-15 10:01] VITALS: BMI 28.4
--- NOTE | 2023-07-15 10:05 | ECG_ITS ---
[facility] Test Date: 2023-07-15 Pat Name: Cate Tariq Department: Room: Gender: Female [employer] Fe[employer]: : 1945 Requested By: Maci Owens Order Number: [id number] Temitope MD: Maci Owens M.D. Interpretive Statements NAME OF STUDY: LEXISCAN SESTAMIBI STRESS TEST INDICATION: VENTRICULAR ARRHYTHMIA PROCEDURE: At the baseline, the EKG revealed normal sinus rhythm with some nonspecific ST changes. The baseline heart was 95 bpm with a blood pressue of 158/74 mm of Hg Lexiscan was infused over a period of 20 seconds. A total of 0.4 milligrams of Lexiscan was infused. The stress phase was continued for a total of 5 minutes. Heart rate at the end of the stress phase was 107 bpm with a blood pressure 155/57 mm of Hg. The EKG at the peak infusion revealed nonspecific ST changes. Sestamibi was injected 20 seconds after the Lexiscan infusion. Heart rate at the end of the recovery phase was 108 bpm with a blood pressure of 150/59 mm of Hg. CONCLUSION: 1. Nonspecific EKG changes with the LexiScan infusion 2. No LexiScan induced chest pain or cardiac arrhythmia 3. Normal blood pressure and heart rate response 4. Sestamibi/sestamibi perfusion scan pending; see separate report. Electronically Signed On 07-18-2023 13:25:50 [employer] OFF[employer] by Maci Owens M.D. [email or web address]
--- NOTE | 2023-07-15 10:06 | NMCV_ITS ---
NM tiesha perf SPECT r/s* [id number] Cate Tariq Age: 78 Gender: F : 1945 Exam Date: 07/15/2023 10:06 Ordering Phys: Maci Owens MD ([email or web address]) Technologist: YOVANY Campos Exam Location: [facility] Indications: CORONARY ANGIOPLASTY STATUS STRESS TEST [facility] IMAGE PROTOCOL Rest/Stress 1 Lexiscan Day Radiopharmaceutical Dose (mCi) Administration Site Administered by Rest: Tc-99m 10.5 IV YOVANY Lowry Sestamibi Stress:Tc-99m 32.6 IV YOVANY Campos Sestamifarhat Rest: 15-Jul-2023 60 Discovery 630 Stress: 15-Jul-2023 30 Discovery 630 0.4mg Lexiscan. Supine position only as patient was unable to lay prone. SPECT RESULTS Technical Quality: Excellent Raw Data Analysis: Normal Image Corrections: No attenuation or motion correction applied Summed Stress Score: 1 Summed Rest Score: 0 Summed Difference Score: 1 PERFUSION FINDINGS A very small area of slightly decreased tracer uptake was noted in the apical lateral region with some reversibility FUNCTIONAL RESULTS (calculated via Gated SPECT) Stress Image LV EF (%): 76 Stress EDV (mL):51 TID: 0.94 Stress ESV (mL):12 FUNCTIONAL FINDINGS: Segmental wall motion analysis revealing no gross wall motion abnormalities IMPRESSIONS 1. Myocardial perfusion imaging revealing small area of slightly decreased tracer uptake in the apical lateral region with some reversibility suggesting a very small area of myocardial scarring with ischemia in the distribution of the distal left circumflex artery. 2. Normal LV ejection fraction 76%. 3. LV wall motion analysis revealing no gross wall motion abnormalities.. 4. Normal LV volume No similar previous studies are available for comparison Dr Maci Owens MD [facility] (Electronically Signed) Final Date: 15 July 2023 17:08 S
[2023-07-15] MEDS: regadenoson 0.4 Mg/5 ml Syringe IVP (12:03)
[2023-07-15 12:20] VITALS: BP 136/84; PULSE 72
== END 2023-07-15 09:47 | disposition home or self-care (01) ==
LOC: CDL 09:48
PROVIDERS: PCP Registered Nurse; Visit Provider Internal Medicine Cardiovascular Disease
DX: Z98.61 Coronary angioplasty status (principal)
CPT/HCPCS: 36415; 78452; 93017; 96374; A9500; J2785

== ENCOUNTER 2023-08-11 08:06 | Outpatient (CLI) | payer MEDICARE, OTHER, SELFPAY ==
--- NOTE | 2023-08-11 08:30 | US_ITS ---
WS: [id number] US pelvic complete* [id number] Only transabdominal imaging performed. Patient refused transvaginal imaging. HISTORY: R61 - Generalized hyperhidrosis COMPARISON: CT 06/30/2023 Uterus: 7.9 cm x 3.3 cm x 3.6 cm. Mildly atrophied anteverted uterus. No fibroid. Endometrium: 1.6 cm. Abnormal endometrium. Endometrial cavity is distended with mass of increased ech ogenicity. There are a few tiny cystic components. This corresponds to the finding on the recent CT. No adnexal mass. Neither ovary is identified. No free fluid in the cul-de-sac. IMPRESSION: 1. Diffuse abnormal thickening of the endometrium. Highly suspicious for endometrial neoplasm. Biopsy should be obtained. 2. Neither ovary identified.
== END 2023-08-11 08:07 | disposition home or self-care (01) ==
LOC: RAD 08:07
PROVIDERS: PCP Registered Nurse; Visit Provider Internal Medicine
DX: R61 Generalized hyperhidrosis (principal); R93.89 Abnormal findings on diagnostic imaging of other specified body structures
CPT/HCPCS: 76856

== ENCOUNTER → 2023-08-12 09:46 | Outpatient (BNVA) | payer MEDICARE, OTHER, SELFPAY | PROVIDERS: Family Provider Nurse Practitioner; PCP Registered Nurse; Visit Provider Internal Medicine | DX: E05.90 Thyrotoxicosis, unspecified without thyrotoxic crisis or storm; R00.2 Palpitations; N85.9 Noninflammatory disorder of uterus, unspecified; E16.2 Hypoglycemia, unspecified | CPT/HCPCS: 84439; 84443; 84480; 99214 ==

== ENCOUNTER 2023-10-20 10:37 | Outpatient (CLI) | payer MEDICARE, OTHER, SELFPAY ==
[2023-10-20 11:28] LABS: Thyroid Stimulating Hormone 6.55 uIU/mL (0.27-4.20)
[2023-10-21 12:50] LABS: T3 Total 94 ng/dL (76-181)
== END 2023-10-20 10:38 | disposition home or self-care (01) ==
LOC: LAB 10:41
PROVIDERS: Family Provider Nurse Practitioner; PCP Registered Nurse; Visit Provider Internal Medicine
DX: E05.90 Thyrotoxicosis, unspecified without thyrotoxic crisis or storm; E16.2 Hypoglycemia, unspecified; R61 Generalized hyperhidrosis; R25.2 Cramp and spasm; N85.9 Noninflammatory disorder of uterus, unspecified
CPT/HCPCS: 36415; 84439; 84443; 84480; 99214

== ENCOUNTER 2023-11-11 11:30 | Day surgery (SDC) | payer MEDICARE, OTHER, SELFPAY ==
[2023-11-06 11:51] LABS: Add Urine Microscopic? NO; Charge for UA Resulting for Rev
[2023-11-06 11:53] LABS: Basophils % 0.6 %; Eosinophils # 0.1 10^3/uL (0.0-0.8); Eosinophils % 1.3 %; Hematocrit 37.6 % (36-47); Lymphocytes # 1.9 10^3/uL (0.8-4.8); Lymphocytes % 26.7 %; Mean Corpuscular HGB Conc 33.8 g/dL (30-55); Mean Corpuscular Hemoglobin 31.4 pg (27-33); Mean Corpuscular Volume 92.8 fl (85-98); Mean Platelet Volume 8.6 fL (7.4-10.4); Monocytes # 0.5 10^3/uL (0.2-0.9); Monocytes % 7.2 %; Neutrophils % 63.9 %; Nucleated Red Blood Cells % 0 %; Platelet Count 359 10^3/cmm (157-399); Red Blood Count 4.05 10^6/uL (3.85-5.65); Red Cell Distribution Width 12.2 % (12.1-15.1); White Blood Count 7.04 10^3/uL (3.29-11.43)
[2023-11-06 12:04] LABS: Bilirubin Urine Neg (Negative); Blood Urine Neg (Negative); Glucose Urine UA Norm (Normal); Ketones Urine Negative (Negative); Leukocyte Esterase Urine Negative (Negative); Nitrate Urine Negative (Negative); Protein Urine Neg (Negative); Urine Appearance Clear (CLEAR); Urine Color Yellow (Yellow); Urobilinogen Urine Norm (Negative); pH Urine 6.5 (5-7)
[2023-11-06 12:29] LABS: Alanine Aminotransferase 10 U/L (0-33); Albumin Level 4.1 g/dL (3.5-5.2); Alkaline Phosphatase 83 U/L (35-105); Anion Gap 15.2 (5-19); Aspartate Amino Transferase 16 U/L (0-32); Blood Urea Nitrogen 12 mg/dL (8-23); Calcium 9.1 mg/dL (8.5-10.5); Carbon Dioxide 26 mmol/L (22-29); Chloride 101 mmol/L (98-107); Globulin 2.7 g/dL (1.3-4.6); Glucose 84 mg/dL (65-115); Osmolality Calculated 283 mOsm/kg (285-295); Potassium 5.2 mmol/L (3.5-5.1); Sodium 137 mmol/L (136-145); Total Bilirubin 0.3 mg/dL (0.15-1.2); Total Protein 6.8 g/dL (6.6-8.7)
--- NOTE | 2023-11-06 16:58 | ANES.PREANE2 ---
Pre-Anesthetic Assessment Height/Weight: Height 1.65 m Operation Date: 11/11/23 08:35 Proposed Procedures p Hysteroscopy, dilation and curettage with Myosure 87698 R93.89(Not Applicable) - Dustin Fernandez MD s Dilation And Curettage (D&C)(Not Applicable) - Dustin Fernandez MD Was Beta Maria Guadalupe taken within 24 hours: Yes Was Clonidine taken within 24 hours: N/A Social No alcohol and No tobacco Exam alert and oriented x 3 Airway Submandibular: within normal limits Cervical ROM: within normal limits Mallampati: Class II Dentition: partials Comments: Comments: upper & lower partials History/ROS No significant history except as noted and No significant complaints CV/HEM Hypertension Metabolic Thyroid Disease Anesthetic Plan ASA status: 3 Anesthesia: General Risk of > 500 ml blood loss (7ml/kg in children): No Medications/Allergies Home Medications Medication Instructions Recorded Confirmed Last Taken Type cetirizine 10 mg tablet (Zyrtec) 10 mg PO DAILY PRN Allergy Symptoms 09/11/22 11/06/23 11/05/23 History fluticasone propionate 50 2 spray intranasal DAILY 09/11/22 11/06/23 11/05/23 History mcg/actuation nasal spray,suspension (Flonase Allergy Relief) ibuprofen 200 mg capsule 200 mg PO Q6H PRN Pain 06/30/23 11/06/23 11/05/23 History rwlonwsh-ckq-ygoud ac 400 1 tab PO DAILY 06/30/23 11/06/23 06/29/23 History mcg-calcium carb 500 mg-vit K1 20 mcg tablet (Women's 50 Plus Multivitamin) methimazole 10 mg tablet 10 mg PO DAILY 90 days #90 tabs 09/17/23 11/06/23 11/05/23 Rx metoprolol tartrate 50 mg tablet 25 mg PO DAILY 11/06/23 11/06/23 11/05/23 History Allergies Allergy/AdvReac Type Severity Reaction Status Date / Time propanolol AdvReac Intermediate nose scabs Uncoded 11/06/23 10:36 [facility] Anesthesia Medical History GERD (gastroesophageal reflux disease) Breast cancer Colitis Loose left total knee arthroplasty Hiatal hernia Inflammatory arthritis Hyperthyroidism Surgical History S/P breast lumpectomy History of knee replacement Family History Other Arrhythmia CAD (coronary artery disease) Cancer Social History Smoking and tobacco/nicotine status: never used tobacco/nicotine Alcohol intake: never Caregiver/support person: Yes Lives independently: Yes Household members: spouse Housing: House Data Anesthesia 11/06/23 10:51 11/06/23 10:51 Short CBC 11/06/23 Range/Units 10:51 WBC 7.04 (3.29-11.43) 10^3/uL Hgb 12.70 (11.27-16.99) g/dL Hct 37.6 (36-47) % MCV 92.8 (85-98) fl Plt Count 359 (157-399) 10^3/cmm Neut % (Auto) 63.9 % Neut # (Auto) 4.50 (1.8-7.7) 10^3/uL BMP 11/06/23 10:51 Sodium 137 Potassium 5.2 H Chloride 101 Carbon Dioxide 26 BUN 12 Creatinine 0.6 Glucose 84 Calcium 9.1 Liver Function 11/06/23 Range/Units 10:51 Total Bilirubin 0.3 (0.15-1.2) mg/dL AST 16 (0-32) U/L ALT 10 (0-33) U/L Alkaline Phosphatase 83 (35-105) U/L Albumin 4.1 (3.5-5.2) g/dL Urine 11/06/23 Range/Units 11:00 Urine Color Yellow (Yellow) Urine Appearance Clear (CLEAR) Urine pH 6.5 (5-7) Ur Specific [place] 1.010 (1.005-1.030) Urine Protein Neg (Negative) Urine Glucose (UA) Norm (Normal) Urine Ketones Negative (Negative) Urine Nitrate Negative (Negative) Urine Bilirubin Neg (Negative) Ur Leukocyte Esterase Negative (Negative) Blood Bank 11/06/23 10:51 Blood Type A Positive Rho(D) Type Rh positive Antibody Screen Negative Cardiac Studies: Echocardiogram 06/30/23 Sestamibi Stress Test (Cardiology) 07/15/23 Cardiac Event Monitor 07/09/23
[2023-11-11 12:08] VITALS: BP 201/78; PULSE 65; RESP 17; TEMP 36.2; O2SAT 97; BMI 28.3
--- NOTE | 2023-11-11 12:08 | W.PM.OPSUD ---
Surgery/Procedure H&P Update DATE OF PROCEDURE: November 11, 2023 DATE H&P PERFORMED: 11/03/23 H&P UPDATE INFORMATION: I have reviewed H&P completed within last 30 days, I have examined patient prior to procedure and No changes to prior documentation PREOP DIAGNOSIS: Thickened endometrium PLANNED PROCEDURE: Operation Date: 11/11/23 13:40 Proposed Procedures p Hysteroscopy, dilation and curettage with Myosure 17302 R93.89(Not Applicable) - Dustin Fernandez MD s Dilation And Curettage (D&C)(Not Applicable) - Dustin Fernandez MD
[2023-11-11] MEDS: sodium chloride 0.9% 1,000 ML 30 ML IV (12:45)
[2023-11-11] MEDS: enoxaparin 30 mg/0.3 mL Syringe SUBCUT (12:53)
[2023-11-11] MEDS: scopolamine 1.5 Patch 1 PATCH TRANSDERMA (12:53)
[2023-11-11 14:35] LABS: Potassium 4.6 mmol/L (3.5-5.1)
[2023-11-11] MEDS: ceFAZolin 2,000 MG in sodium chloride 0.9% (plus) 50 ML 100 MG IV (15:34)
[2023-11-11] MEDS: lidocaine-epi 2% PF 1:200,000 20 mL SDV INJECTION (16:08)
[2023-11-11 16:21] VITALS: BP 173/92; PULSE 119; RESP 18; TEMP 36.1; O2SAT 98
--- NOTE | 2023-11-11 16:21 | P.OP_ITS ---
Operative Report Date of procedure: November 11, 2023 Pre-op diagnosis: Thickened endometrium Post-op diagnosis: Endometrial polyps Post-op findings: Multiple endometrial polyps Procedure done: Hysteroscopy Hysteroscopic polypectomy via MyoSure Specimens removed/disposition: Endometrial polyps Surgeon: Dustin Fernandez MD Estimated blood loss (mL): 5 IV fluids (mL): 150 Complications: None Findings: Multiple endometrial polyps Procedure: After informed consent, the risks included but were not limited to bleeding, infection, injury to internal organs. The patient was counseled on a possible laparotomy and on the potential need for hysterectomy. The patient expressed understanding of the risks involved, all questions were answered, and the patient consented to the procedure. The patient was taken to the operating room where general anesthesia was administered. She was placed in the dorsal lithotomy position and prepped and draped in sterile fashion. A time out procedure was performed. The patient was examined under anesthesia and found to have a normal uterus with normal adnexa. A sterile weight speculum was placed in the vagina. The uterus was then gently sounded to 7 cm, and the cervix was dilated. The 0 degrees MyoSure hysteroscope was advanced gently to the uterine fundus while visualizing the monitor. Survey of the uterine cavity showed: Multiple endometrial polyps arising from the fundus, the fundus shows normal atrophic endometrium ; left ostium was visualized, and lateral wall with atrophic in the mid; right ostium visualized, and lateral wall with atrophic endometrium; anterior and posterior ott are with atrophic in the mid; endocervical canal is normal. The MyoSure device was advanced and the direct visualization the polyps were morcellated without complication. At the end of morcellation the fluid def icit was 300 mL and was estimated at approximately 200 mL were on the floor. There was minimal bleeding noted and the tenaculum removed with goad hemostasis noted. The patient tolerated the procedure well. The patient was taken to the recovery area in stable condition.
[2023-11-11 16:39] VITALS: BP 176/114; PULSE 109; RESP 18; O2SAT 100
[2023-11-11 16:48] VITALS: BP 143/96; PULSE 109; RESP 18; O2SAT 92
[2023-11-11 16:52] VITALS: BP 168/102; PULSE 106; RESP 16; TEMP 36.6; O2SAT 98
--- NOTE | 2023-11-11 17:06 | ANE.PACU2 ---
Inpatient post-anesthesia follow up: Airway intact: Yes Vital signs: Temperature 98 F Pulse Rate 106 Respiratory Rate 16 Blood Pressure 168/102 Pulse Oximetry 98 Oxygen Delivery Me thod Room Air Oxygen Flow Rate Fraction of Inspir ed Oxygen Hydration adequate: Yes Nausea and vomiting: No Pain level: 1 Mental status: Baseline
[2023-11-11 17:07] VITALS: BP 154/92; PULSE 100; RESP 17; O2SAT 98
== END 2023-11-11 17:35 | disposition home or self-care (01) ==
PROVIDERS: Anesthesiology; Family Provider Nurse Practitioner; PCP Registered Nurse; Visit Provider Obstetrics & Gynecology
PROC: 0UDB8ZZ Extraction of Endometrium, Via Natural or Artificial Opening Endoscopic (ICD-10-PCS; CPT 58558; principal; 2023-11-11 13:30)
PROC: (CPT 58120; 2023-11-11 13:30)
DX: N84.0 Polyp of corpus uteri (principal); I10 Essential (primary) hypertension; K21.9 Gastro-esophageal reflux disease without esophagitis; Z85.3 Personal history of malignant neoplasm of breast
CPT/HCPCS: 58558; 36415; 80053; 81003; 84132; 85025; 86850; 86900; 88305; J0690; J1100; J1650; J2405; J2704; J3010; J7030

== ENCOUNTER 2023-11-18 12:13 | Emergency (ER) | payer MEDICARE, OTHER, SELFPAY ==
[2023-11-18] VITALS (7 sets, daily range): BP systolic 120–169; BP diastolic 51–82; PULSE 104–114; RESP 16–20; TEMP 36.6; O2SAT 94–98; BMI 28.3
--- NOTE | 2023-11-18 12:47 | CT_ITS ---
WS: [id number] CT ABDOMEN PELVIS TECHNIQUE: Contrast-enhanced CT of the abdomen and pelvis with coronal and sagittal reformatted image s. CLINICAL INFORMATION: abdominal pain, vomiting; recent hysteroscopy COMPARISON: None. DLP: 873.[address] scans at [facility] use at least one of these dose optimization techniques: automated e xposure control; mA and/or kV adjustment per patient size (includes targeted exams where dose is matc hed to clinical indication); or iterative reconstruction. FINDINGS: Peripherally enhancing free fluid in the pelvis some with a few pockets of air suspicious for abscess . Small uterus with endometrial thickening. Free fluid in the cul-de-sac with peripheral enhancement. Sigmoid colon is decompressed with diffuse enhancement and thickening. Suspected abscess in the cent ral pelvis containing fecal contents measuring approximately 9.1 x 8.3 cm. Suspected large perforatio n in the adjacent sigmoid colon series 3 image 71. Diffuse thickening of the surrounding colon with i nflammatory changes. Additional smaller pocket of air and fluid in the LEFT retroperitoneum measuring 2.9 cm. Suspected central pelvic abscess just dorsal to the uterus with a few additional surrounding loops of tethered sigmoid colon with wall thickening and enhancement likely reactive. Mild diffuse fatty filtration of the liver. Extensive cholelithiasis. Small to moderate esophageal he rnia. Enhancement in the gastric wall and duodenum compatible with gastroduodenitis. Pancreas appears normal. Splenic granulomas. Splenic artery calcification. Small bilateral adrenal adenomas. Normal p ortal vein and splenic vein. Dense aortic calcification. Normal caliber abdominal aorta. No hydroneph rosis in either kidney. Lumbar curve. Grade 1 anterolisthesis L4 on L5. Moderate spondylitic changes lumbar spine. Lung bases are well aerated. IMPRESSION: 1. Suspected large pelvic abscess with fecal material in the central pelvis measuring 8.3 x 9.0 cm. Suspected wide defect in the adjacent sigmoid colon may be due to perforated diverticulitis or perfor ated neoplasm. 2. Areas of peripheral enhancing free fluid in the pelvis and LEFT retroperitoneum compatible with m ultifocal abscess. 3. Sigmoid colon is closely tethered and abutting the suspected central pelvic abscess which also cl osely abuts the dorsal uterus. A few additional tethered loops of small bowel with reactive enhanceme nt. 4. Diffuse thickening and enhancement involving the sigmoid colon. 5. Patient at risk for multifocal fistula formation in the pelvis. 6. Dense cholelithiasis. 7. Small to moderate esophageal hiatal hernia. 8. Endometrial thickening suspicious for endometrial neoplasm previously described. 9. Gastroduodenitis. Notified EVONNE Kaur at 11/18/2023 3:02 PM.
--- NOTE | 2023-11-18 12:47 | W.ED.ABDPA2 ---
Documented by User: EVONNE Kaur 11/18/23 15:57 HPI - Abdominal Pain General: Chief Complaint: Abdominal Pain Stated Complaint: vomiting, abd pain Time Seen by Provider: 11/18/23 12:16 Source: patient Mode of arrival: ambulatory Limitations: no limitations History of Present Illness: Patient is a 78-year-old female presents to ED today along with her for concerns of abdominal pain, repetitive episodes of vomiting following a hysteroscopy. Patient states she underwent hysteroscopy by Dr. Fernandez on 11/10 due to a thickened endometrium. According to operative note and patient there were multiple endometrial polyps found and removed. Patient states she is not having any vaginal bleeding or discharge. She states since the procedure she has been incredibly nauseous with vomiting and not wanting to eat. She states she initially thought symptoms were secondary to anesthesia but they have not improved. She is also complaining of 8/10 abdominal pain and feels like her abdomen is distended and bloated. states she is weak secondary to not eating. No fevers. MD elicited complaint: abdominal pain Onset (ago): day(s) Pain Consistency: constant Location: Diffuse Severity: severe Pain scale (0-10): 8 Radiation: none Migration to: no migration Exacerbating factors: eating Relieving factors: nothing Context: other (recent hysteroscopy) Associated Symptoms: Reports anorexia, bloating, nausea and vomiting; Denies chills, dysuria, fever(s), hematochezia, hematemesis and melena Related Data: Patient : No Review of Systems Const: Denies: fever(s), chills, body aches, fatigue or malaise Card: Denies: chest pain Resp: Denies: dyspnea GI: Reports: abdominal pain, nausea, vomiting and bloating; Denies: hematemesis, rectal pain, hematochezia or melena : Denies: flank pain, difficulty voiding, dysuria, urinary frequency, urinary urgency or urinary hesitancy Musc: Denies: neck pain, back pain, extremity pain or joint pain Skin/Breast: Denies: rash Neuro: Denies: headache(s), numbness in extremities, weakness in extremities, sensory changes or dizziness PFS ED PFSH: Medical History GERD (gastroesophageal reflux disease) Breast cancer Colitis Loose left total knee arthroplasty Hiatal hernia Inflammatory arthritis Hyperthyroidism Surgical History S/P breast lumpectomy History of knee replacement Family History Other Arrhythmia CAD (coronary artery disease) Cancer Social History Smoking and tobacco/nicotine status: never used tobacco/nicotine Alcohol intake: never Caregiver/support person: Yes Lives independently: Yes Household members: spouse Housing: House Physical Exam Const: COMMON NORMALS: no acute distress, patient oriented x3, no limitations, alert and well nourished GENERAL APPEARANCE: cooperative ORIENTATION/CONSCIOUSNESS: Yes awake, Yes oriented to person, Yes oriented to place and Yes oriented to time HENMT: COMMON NORMALS: normocephalic and atraumatic HEAD & SCALP: normocephalic and atraumatic Eye: COMMON NORMALS: no scleral icterus Neck/C-Spine: COMMON NORMALS: full ROM, no lymphadenopathy, supple and no meningeal signs Chest: COMMONS NORMALS: normal inspection of the chest and normal palpation of entire chest wall Resp: COMMON NORMALS: normal respiratory effort and clear to auscultation bilaterally AUSCULTATION: clear to auscultation bilaterally Cardio: COMMON NORMALS: regular rate and regular rhythm RATE: regular rate RHYTHM: regular rhythm GI: INSPECTION: Yes abdominal distension AUSCULTATION: Yes Absent bowel sounds PALPATION: Yes Tenderness to palpation present (GI) (diffusely), Yes Guarding due to palpation present (GI) and No Rigid due to palpation : COMMON NORMALS: Yes no CVA tenderness BLADDER/KIDNEY EXAM: Yes no CVA tenderness Back/Pelvis: COMMON NORMALS: no CVA tenderness and thoracic and lumbar spine normal to inspection Extremity: COMMON NORMALS: normal to inspection GENERAL: Yes normal exam except as noted Neuro: ANNE COMA SCALE: document GCS findings Anne coma scale eye opening: Spontaneous Anne coma scale verbal response: Orientated [place] coma scale motor response: Obey commands [place] coma scale total score: 15 COMMON NORMALS: patient oriented x3, moves all extremities, no focal motor deficits and no sensory deficits noted SENSORIUM/ORIENTATION: Yes alert, Yes oriented to person, Yes oriented to place and Yes oriented to time MENINGEAL SIGNS: Yes no meningeal signs Skin: COMMON NORMALS: no rashes or lesions noted GENERAL SKIN EXAM: no rashes or lesions noted Course Consultations: Consultation #1: Dr. Mullins-recommends transfer to facility with colorectal speciality Consultation #2: Dr. Buckley-[facility] colorectal surgery-accepts transfer Vital Signs: Vital signs: Vital Signs Temperature 97.9 F 11/18/23 12:17 Pulse Rate 104 H 11/18/23 13:21 Respiratory Rate 20 H 11/18/23 13:21 Blood Pressure 126/54 11/18/23 13:21 Pulse Oximetry 96 11/18/23 13:21 MDM - Abdominal Pain Medical Decision Making Patient is a 78-year-old female presents to ED today with complaint of abdominal pain, nausea, vomiting, inability to eat following hysteroscopy 7 days ago. Upon arrival she is tachycardic. Blood work showing a white count of almost 27,000. She has a normal lactate. AST/ALT are mildly elevated. Her alk phos was significantly elevated. She has a normal tbili and lipase. On her CT scan she has a large pelvic abscess measuring 8.3 x 9 cm the radiologist thought was most likely secondary to a perforated diverticulitis or perforated neoplasm. There is no evidence for uterine perforation. I spoke to our general surgeon who is recommending transfer to a facility with colorectal surgery. I spoke to colorectal surgeon at [facility], Dr. Buckley who accepts transfer. Patient has been started on IV fluids. She was started on IV Zosyn. Lab Data 11/18/23 12:51 11/18/23 12:51 Labs/Radiology: Laboratory Results WBC 26.57 10^3/uL (3.29-11.43) H 11/18/23 12:51 RBC 4.18 10^6/uL (3.85-5.65) 11/18/23 12:51 Hgb 12.90 g/dL (11.27-16.99) 11/18/23 12:51 Hct 37.7 % (36-47) 11/18/23 12:51 MCV 90.2 fl (85-98) 11/18/23 12:51 MCH 30.9 pg (27-33) 11/18/23 12:51 MCHC 34.2 g/dL (30-55) 11/18/23 12:51 RDW 12.5 % (12.1-15.1) 11/18/23 12:51 Plt Count 430 10^3/cmm (157-399) H 11/18/23 12:51 MPV 8.2 fL (7.4-10.4) 11/18/23 12:51 Neut % (Auto) 89.0 % 11/18/23 12:51 Lymph % (Auto) 4.4 % 11/18/23 12:51 [place]ether % (Auto) 3.2 % 11/18/23 12:51 Eos % (Auto) 0.6 % 11/18/23 12:51 Baso % (Auto) 0.5 % 11/18/23 12:51 Neut # (Auto) 23.63 10^3/uL (1.8-7.7) H 11/18/23 12:51 Lymph # (Auto) 1.2 10^3/uL (0.8-4.8) 11/18/23 12:51 [place]ether # (Auto) 0.9 10^3/uL (0.2-0.9) 11/18/23 12:51 Eos # (Auto) 0.2 10^3/uL (0.0-0.8) 11/18/23 12:51 Baso # (Auto) 0.1 10^3/uL (0.0-0.1) 11/18/23 12:51 Nucleated RBC % (auto) 0 % 11/18/23 12:51 Nucleated RBCs # 0.0 /100WBC 11/18/23 12:51 Sodium 131 mmol/L (136-145) L 11/18/23 12:51 Potassium 3.5 mmol/L (3.5-5.1) 11/18/23 12:51 Chloride 94 mmol/L (98-107) L 11/18/23 12:51 Carbon Dioxide 24 mmol/L (22-29) 11/18/23 12:51 Anion Gap 16.5 (5-19) 11/18/23 12:51 BUN 19 mg/dL (8-23) 11/18/23 12:51 Creatinine 0.9 mg/dL (0.5-0.9) 11/18/23 12:51 GFR Calculation Not Reportable 11/18/23 12:51 Glucose 148 mg/dL (65-115) H 11/18/23 12:51 Calculated Osmolality 277 mOsm/kg (285-295) L 11/18/23 12:51 Lactic Acid 1.9 mmol/L (0.5-2.2) 11/18/23 13:00 Calcium 8.6 mg/dL (8.5-10.5) 11/18/23 12:51 Total Bilirubin 1.0 mg/dL (0.15-1.2) 11/18/23 12:51 AST 34 U/L (0-32) H 11/18/23 12:51 ALT 48 U/L (0-33) H 11/18/23 12:51 Alkaline Phosphatase 347 U/L (35-105) H 11/18/23 12:51 Total Protein 6.7 g/dL (6.6-8.7) 11/18/23 12:51 Albumin 3.4 g/dL (3.5-5.2) L 11/18/23 12:51 Globulin 3.3 g/dL (1.3-4.6) 11/18/23 12:51 Lipase 12 U/L (13-60) L 11/18/23 12:51 All radiology interpretation(s) finalized by discharge Discharge Plan Discharge Patient Disposition: Xfer Short-Term Hosp Clinical Impression: Abscess of sigmoid colon Condition: Stable Referrals: Akiko Jean [Primary Care Provider] - Coding Level of Care Code ED Aircraft Systems Technician for Chg Fwd Documented by User: Atif Schwab DO 11/18/23 16:23 HPI - Abdominal Pain General: Chief Complaint: Abdominal Pain Stated Complaint: vomiting, abd pain Time Seen by Provider: 11/18/23 12:16 PFSH ED PFSH: Medical History GERD (gastroesophageal reflux disease) Breast cancer Colitis Loose left total knee arthroplasty Hiatal hernia Inflammatory arthritis Hyperthyroidism Surgical History S/P breast lumpectomy History of knee replacement Family History Other Arrhythmia CAD (coronary artery disease) Cancer Social History Smoking and tobacco/nicotine status: never used tobacco/nicotine Alcohol intake: never Caregiver/support person: Yes Lives independently: Yes Household members: spouse Housing: House Physical Exam Neuro: ANNE COMA SCALE: document GCS findings [place] coma scale total score: 15 Course Vital Signs: Vital signs: Vital Signs Temperature 97.9 F 11/18/23 12:17 Pulse Rate 104 H 11/18/23 13:21 Respiratory Rate 20 H 11/18/23 13:21 Blood Pressure 126/54 11/18/23 13:21 Pulse Oximetry 96 11/18/23 13:21 MDM - Abdominal Pain Medical Decision Making Patient is a 78-year-old female presents to ED today with complaint of abdominal pain, nausea, vomiting, inability to eat following hysteroscopy 7 days ago. Upon arrival she is tachycardic. Blood work showing a white count of almost 27,000. She has a normal lactate. AST/ALT are mildly elevated. Her alk phos was significantly elevated. She has a normal tbili and lipase. On her CT scan she has a large pelvic abscess measuring 8.3 x 9 cm the radiologist thought was most likely secondary to a perforated diverticulitis or perforated neoplasm. There is no evidence for uterine perforation. I spoke to our general surgeon who is recommending transfer to a facility with colorectal surgery. I spoke to colorectal surgeon at [facility], Dr. Buckley who accepts transfer. Patient has been started on IV fluids. She was started on IV Zosyn. Chart reviewed and patient discussed with midlevel. Agree with assessment and plan. Lab Data 11/18/23 12:51 11/18/23 12:51 Labs/Radiology: Laboratory Results WBC 26.57 10^3/uL (3.29-11.43) H 11/18/23 12:51 RBC 4.18 10^6/uL (3.85-5.65) 11/18/23 12:51 Hgb 12.90 g/dL (11.27-16.99) 11/18/23 12:51 Hct 37.7 % (36-47) 11/18/23 12:51 MCV 90.2 fl (85-98) 11/18/23 12:51 MCH 30.9 pg (27-33) 11/18/23 12:51 MCHC 34.2 g/dL (30-55) 11/18/23 12:51 RDW 12.5 % (12.1-15.1) 11/18/23 12:51 Plt Count 430 10^3/cmm (157-399) H 11/18/23 12:51 MPV 8.2 fL (7.4-10.4) 11/18/23 12:51 Neut % (Auto) 89.0 % 11/18/23 12:51 Lymph % (Auto) 4.4 % 11/18/23 12:51 [place] % (Auto) 3.2 % 11/18/23 12:51 Eos % (Auto) 0.6 % 11/18/23 12:51 Baso % (Auto) 0.5 % 11/18/23 12:51 Neut # (Auto) 23.63 10^3/uL (1.8-7.7) H 11/18/23 12:51 Lymph # (Auto) 1.2 10^3/uL (0.8-4.8) 11/18/23 12:51 [place] # (Auto) 0.9 10^3/uL (0.2-0.9) 11/18/23 12:51 Eos # (Auto) 0.2 10^3/uL (0.0-0.8) 11/18/23 12:51 Baso # (Auto) 0.1 10^3/uL (0.0-0.1) 11/18/23 12:51 Nucleated RBC % (auto) 0 % 11/18/23 12:51 Nucleated RBCs # 0.0 /100WBC 11/18/23 12:51 Sodium 131 mmol/L (136-145) L 11/18/23 12:51 Potassium 3.5 mmol/L (3.5-5.1) 11/18/23 12:51 Chloride 94 mmol/L (98-107) L 11/18/23 12:51 Carbon Dioxide 24 mmol/L (22-29) 11/18/23 12:51 Anion Gap 16.5 (5-19) 11/18/23 12:51 BUN 19 mg/dL (8-23) 11/18/23 12:51 Creatinine 0.9 mg/dL (0.5-0.9) 11/18/23 12:51 GFR Calculation Not Reportable 11/18/23 12:51 Glucose 148 mg/dL (65-115) H 11/18/23 12:51 Calculated Osmolality 277 mOsm/kg (285-295) L 11/18/23 12:51 Lactic Acid 1.9 mmol/L (0.5-2.2) 11/18/23 13:00 Calcium 8.6 mg/dL (8.5-10.5) 11/18/23 12:51 Total Bilirubin 1.0 mg/dL (0.15-1.2) 11/18/23 12:51 AST 34 U/L (0-32) H 11/18/23 12:51 ALT 48 U/L (0-33) H 11/18/23 12:51 Alkaline Phosphatase 347 U/L (35-105) H 11/18/23 12:51 Total Protein 6.7 g/dL (6.6-8.7) 11/18/23 12:51 Albumin 3.4 g/dL (3.5-5.2) L 11/18/23 12:51 Globulin 3.3 g/dL (1.3-4.6) 11/18/23 12:51 Lipase 12 U/L (13-60) L 11/18/23 12:51 Discharge Plan Discharge Patient Disposition: Xfer Short-Term Hosp Clinical Impression: Abscess of sigmoid colon Condition: Stable Referrals: Akiko Jean [Primary Care Provider] - Coding Level of Care Code ED Aircraft Systems Technician for Santog Will
[2023-11-18 13:12] LABS: Basophils # 0.1 10^3/uL (0.0-0.1); Basophils % 0.5 %; Eosinophils # 0.2 10^3/uL (0.0-0.8); Eosinophils % 0.6 %; Hematocrit 37.7 % (36-47); Lymphocytes # 1.2 10^3/uL (0.8-4.8); Lymphocytes % 4.4 %; Mean Corpuscular HGB Conc 34.2 g/dL (30-55); Mean Corpuscular Hemoglobin 30.9 pg (27-33); Mean Corpuscular Volume 90.2 fl (85-98); Mean Platelet Volume 8.2 fL (7.4-10.4); Monocytes # 0.9 10^3/uL (0.2-0.9); Monocytes % 3.2 %; Neutrophils # 23.63 10^3/uL (1.8-7.7); Nucleated Red Blood Cells % 0 %; Platelet Count 430 10^3/cmm (157-399); Red Blood Count 4.18 10^6/uL (3.85-5.65); Red Cell Distribution Width 12.5 % (12.1-15.1); White Blood Count 26.57 10^3/uL (3.29-11.43)
[2023-11-18] MEDS: sodium chloride 0.9% 1,000 ML 999 ML IV ×2 (13:20→19:32)
[2023-11-18] MEDS: ondansetron 2 mg/ML SDV 2 mL 4 MG IVP (13:20)
[2023-11-18 13:36] LABS: Alanine Aminotransferase 48 U/L (0-33); Albumin Level 3.4 g/dL (3.5-5.2); Alkaline Phosphatase 347 U/L (35-105); Anion Gap 16.5 (5-19); Aspartate Amino Transferase 34 U/L (0-32); Blood Urea Nitrogen 19 mg/dL (8-23); Calcium 8.6 mg/dL (8.5-10.5); Carbon Dioxide 24 mmol/L (22-29); Chloride 94 mmol/L (98-107); Creatinine Clr Calc Pharmacy 52.0456; Globulin 3.3 g/dL (1.3-4.6); Glucose 148 mg/dL (65-115); Lipase 12 U/L (13-60); Osmolality Calculated 277 mOsm/kg (285-295); Potassium 3.5 mmol/L (3.5-5.1); Sodium 131 mmol/L (136-145); Total Protein 6.7 g/dL (6.6-8.7)
[2023-11-18] MEDS: iohexol 350 mg/mL 500 mL Btl (per mL) IV (13:48)
[2023-11-18 14:40] LABS: Lactic Sepsis W/Reflex 1.9 mmol/L (0.5-2.2)
[2023-11-18] MEDS: piperacillin-tazobactam 3.375 GM in sodium chloride 0.9% (plus) 50 ML IV (15:08)
[2023-11-18 17:52] LABS: Specific Gravity, Urine 1.005 (1.005-1.030); Urine Appearance Hazy (CLEAR); Urine Color Yellow (Yellow); pH Urine 5 (5-7)
[2023-11-18 17:53] LABS: Add Urine Microscopic? YES; Bilirubin Urine Neg (Negative); Blood Urine 2+ (Negative); Glucose Urine UA Norm (Normal); Ketones Urine Negative (Negative); Leukocyte Esterase Urine Negative (Negative); Nitrate Urine Negative (Negative); Protein Urine 1+ (Negative); Urobilinogen Urine 4 mg/dL (Negative)
[2023-11-18 17:55] LABS: Add Urine Culture? No; Bacteria Urine TRACE /hpf; RBC Urine 0-4 /hpf (0-2); Transitional Epi Cells Urine 0-4 /hpf; WBC Urine 0-4 /hpf (0-5)
[2023-11-18] MEDS: ketorolac 60 mg/2 mL INJ 30 MG IVP (19:32)
== END 2023-11-18 20:20 | disposition short-term general hospital (02) ==
PROVIDERS: Emergency Provider Physician Assistant; PCP Registered Nurse
DX: K63.0 Abscess of intestine (principal); Z85.3 Personal history of malignant neoplasm of breast
CPT/HCPCS: 36415; 74177; 80053; 81001; 83605; 83690; 85025; 96365; 96366; 96375; 99285; J1885; J2405; J2543; J7030; Q9967

== ENCOUNTER → 2024-08-12 11:18 | Outpatient (BNVA) | payer MEDICARE, OTHER, SELFPAY | PROVIDERS: PCP Registered Nurse; Visit Provider Internal Medicine | DX: E05.90 Thyrotoxicosis, unspecified without thyrotoxic crisis or storm (principal) | CPT/HCPCS: 84439; 84443; 84480 ==

== ENCOUNTER → 2024-08-16 11:23 | Outpatient (BNVA) | payer MEDICARE, OTHER, SELFPAY | PROVIDERS: PCP Registered Nurse; Visit Provider Internal Medicine | DX: E05.90 Thyrotoxicosis, unspecified without thyrotoxic crisis or storm (principal); R00.2 Palpitations; R61 Generalized hyperhidrosis; R25.2 Cramp and spasm; E16.2 Hypoglycemia, unspecified; R55 Syncope and collapse; N85.9 Noninflammatory disorder of uterus, unspecified | CPT/HCPCS: 99214 ==

== ENCOUNTER → 2024-12-02 10:41 | Outpatient (BNVA) | payer MEDICARE, OTHER, SELFPAY | PROVIDERS: PCP Registered Nurse; Visit Provider Internal Medicine | DX: E05.90 Thyrotoxicosis, unspecified without thyrotoxic crisis or storm (principal) | CPT/HCPCS: 84439; 84443 ==

== ENCOUNTER → 2025-04-06 15:43 | Outpatient (BNVA) | payer MEDICARE, OTHER, SELFPAY | PROVIDERS: PCP Registered Nurse; Visit Provider Internal Medicine | DX: E05.90 Thyrotoxicosis, unspecified without thyrotoxic crisis or storm (principal) | CPT/HCPCS: 84439; 84443 ==

== ENCOUNTER → 2025-04-11 10:08 | Outpatient (BNVA) | payer MEDICARE, OTHER, SELFPAY | PROVIDERS: PCP Registered Nurse; Visit Provider Internal Medicine | DX: E05.90 Thyrotoxicosis, unspecified without thyrotoxic crisis or storm (principal); E16.2 Hypoglycemia, unspecified; R61 Generalized hyperhidrosis | CPT/HCPCS: 99214 ==

== ENCOUNTER → 2025-05-04 09:40 | Outpatient (BNVA) | payer MEDICARE, OTHER, SELFPAY | PROVIDERS: PCP Registered Nurse; Visit Provider Dermatology | DX: L74.519 Primary focal hyperhidrosis, unspecified (principal); L82.1 Other seborrheic keratosis; L82.0 Inflamed seborrheic keratosis; L29.89 Other pruritus; L53.8 Other specified erythematous conditions | CPT/HCPCS: 17110; 99204 ==

== ENCOUNTER → 2025-06-06 11:14 | Outpatient (BNVA) | payer MEDICARE, OTHER, SELFPAY | PROVIDERS: PCP Registered Nurse; Visit Provider Dermatology | DX: L74.519 Primary focal hyperhidrosis, unspecified (principal); L30.4 Erythema intertrigo; L82.0 Inflamed seborrheic keratosis; L72.0 Epidermal cyst; L73.8 Other specified follicular disorders; L82.1 Other seborrheic keratosis; D22.61 Melanocytic nevi of right upper limb, including shoulder; D22.39 Melanocytic nevi of other parts of face; B07.8 Other viral warts; R20.8 Other disturbances of skin sensation; L29.89 Other pruritus | CPT/HCPCS: 17000; 17110; 99214 ==